=== PATIENT | female | born 1995 | race Hispanic/Latino ===

== ENCOUNTER 2018-02-11 02:32 | Inpatient (IN) | payer SELFPAY ==
[2018-02-11] MEDS ORDERED: ACTIDOSE SORBITOL PO ONE (02:59)
--- NOTE | 2018-02-11 03:45 | Emergency Department Report ---
History of Present Illness - General Chief Complaint: Overdose Stated Complaint: OVERDOSE Time Seen by Provider: 02/11/18 02:59 Source: patient Mode of arrival: Ambulatory Limitations: No Limitations - History of Present Illness Initial Comments: Patient is a 23-year-old female who is presenting status post accidental overdose. Patient started developing a scratchy itchy throat when she swallows and she went into her friend's pill bottle and thought she was getting Tylenol that took 2 of his 10 mg amlodipine pills. Patient states she did this approximately 30-40 minutes ago. Patient states she has some mild dizziness but otherwise is denying any syncope nausea vomiting diarrhea chest pain or shortness of breath. MD Complaint: accidental overdose - Related Data Previous Rx's Medication Instructions Recorded Last Taken Type Amoxicillin 500 mg PO TID #30 tablet 07/02/14 Unknown Rx Loratadine [Claritin] 10 mg PO DAILY #30 tablet 07/02/14 Unknown Rx predniSONE [Deltasone] 20 mg PO QDAY #5 tab 07/02/14 Unknown Rx Acetaminophen/Codeine [Tylenol #3] 1 tab PO Q6H PRN #12 tab 09/23/14 Unknown Rx Ciprofloxacin HCl [Ciprofloxacin 500 mg PO Q12HR #14 tab 09/23/14 Unknown Rx TAB] Promethazine Dm (Nf) [Phenergan Dm 5 ml PO Q6H PRN #120 ml 09/23/14 Unknown Rx 6.25/15 mg 5 ml] Ibuprofen [Motrin 800 MG tab] 800 mg PO Q8HR PRN #12 tablet 12/06/17 Unknown Rx Sulfamethoxazole/Trimethoprim 1 each PO BID #14 tablet 12/06/17 Unknown Rx [Bactrim DS TAB] Acetaminophen/Codeine [Tylenol 1 tab PO Q6H PRN #10 tab 12/10/17 Unknown Rx /Codeine # 3 tab] Chlorhexidine Gluconate [Hibiclens] 236 ml TP BID #1 liquid 12/10/17 Unknown Rx Ketorolac [Toradol] 10 mg PO Q6H PRN #20 tablet 12/10/17 Unknown Rx Sulfamethoxazole/Trimethoprim 2 each PO BID #28 tablet 12/10/17 Unknown Rx [Bactrim DS TAB] cephALEXin [Keflex] 500 mg PO Q8HR #30 cap 12/10/17 Unknown Rx Allergies Allergy/AdvReac Type Severity Reaction Status Date / Time pineapple Allergy Swelling Verified 12/10/17 00:51 ED Review of Systems ROS: Stated complaint: OVERDOSE Other details as noted in HPI Comment: All other systems reviewed and negative ED Past Medical Hx - Past Medical History Previous Medical History?: Yes Hx Asthma: Yes (as child) - Surgical History Past Surgical History?: Yes Additional Surgical History: x1 - Social History Smoking Status: Never Smoker Substance Use Type: None - Medications Home Medications: Home Medications Medication Instructions Recorded Confirmed Last Taken Type Amoxicillin 500 mg PO TID #30 tablet 07/02/14 Unknown Rx Loratadine [Claritin] 10 mg PO DAILY #30 tablet 07/02/14 Unknown Rx predniSONE [Deltasone] 20 mg PO QDAY #5 tab 07/02/14 Unknown Rx Acetaminophen/Codeine [Tylenol #3] 1 tab PO Q6H PRN #12 tab 09/23/14 Unknown Rx Ciprofloxacin HCl [Ciprofloxacin 500 mg PO Q12HR #14 tab 09/23/14 Unknown Rx TAB] Promethazine Dm (Nf) [Phenergan Dm 5 ml PO Q6H PRN #120 ml 09/23/14 Unknown Rx 6.25/15 mg 5 ml] Ibuprofen [Motrin 800 MG tab] 800 mg PO Q8HR PRN #12 tablet 12/06/17 Unknown Rx Sulfamethoxazole/Trimethoprim 1 each PO BID #14 tablet 12/06/17 Unknown Rx [Bactrim DS TAB] Acetaminophen/Codeine [Tylenol 1 tab PO Q6H PRN #10 tab 12/10/17 Unknown Rx /Codeine # 3 tab] Chlorhexidine Gluconate [Hibiclens] 236 ml TP BID #1 liquid 12/10/17 Unknown Rx Ketorolac [Toradol] 10 mg PO Q6H PRN #20 tablet 12/10/17 Unknown Rx Sulfamethoxazole/Trimethoprim 2 each PO BID #28 tablet 12/10/17 Unknown Rx [Bactrim DS TAB] cephALEXin [Keflex] 500 mg PO Q8HR #30 cap 12/10/17 Unknown Rx ED Physical Exam - General Limitations: No Limitations General appearance: alert, in no apparent distress - Head Head exam: Present: atraumatic, normocephalic - Eye Eye exam: Present: normal appearance - ENT ENT exam: Present: mucous membranes moist, other (very poor dentition) - Neck Neck exam: Present: normal inspection - Respiratory Respiratory exam: Present: normal lung sounds bilaterally. Absent: respiratory distress, wheezes, rales, rhonchi - Cardiovascular Cardiovascular Exam: Present: regular rate, normal rhythm, normal heart sounds. Absent: systolic murmur, diastolic murmur, rubs, gallop - GI/Abdominal GI/Abdominal exam: Present: soft, normal bowel sounds - Extremities Exam Extremities exam: Present: normal inspection - Back Exam Back exam: Present: normal inspection - Neurological Exam Neurological exam: Present: alert, oriented X3 - Psychiatric Psychiatric exam: Present: normal affect, normal mood - Skin Skin exam: Present: warm, dry, intact, normal color. Absent: rash ED Course Vital Signs 02/11/18 02/11/18 02/11/18 02:35 02:37 03:16 Temperature 99.0 F 99.0 F Pulse Rate 99 H 107 H 111 H Respiratory 18 18 15 Rate Blood Pressure 121/70 121/70 114/67 O2 Sat by Pulse 100 99 100 Oximetry 02/11/18 02/11/18 03:30 03:46 Temperature Pulse Rate 123 H 123 H Respiratory 19 26 H Rate Blood Pressure 123/67 123/67 O2 Sat by Pulse 100 Oximetry ED Medical Decision Making - Lab Data Result diagrams: 02/11/18 03:23 Labs 02/11/18 02/11/18 02/11/18 03:23 03:23 03:23 Sodium 137 Potassium 3.5 L Chloride 101.7 Carbon Dioxide 22 Anion Gap 17 BUN 17 Creatinine 0.7 Estimated GFR > 60 BUN/Creatinine Ratio 24 Glucose 83 Calcium 9.0 Total Bilirubin 0.20 AST 15 ALT 9 Alkaline Phosphatase 52 Total Protein 7.6 Albumin 4.5 Albumin/Globulin Ratio 1.5 Salicylates < 0.3 L Acetaminophen < 5.0 L - Medical Decision Making Control is consulted and suggested the patient be admitted Sunday. Patient PLACED on a monitor and will be admitted to the hospitalist service at this time. Critical care attestation.: If time is entered above; I have spent that time in minutes in the direct care of this critically ill patient, excluding procedure time. ED Disposition Clinical Impression: Accidental overdose Qualifiers: Encounter type: initial encounter Qualified Code(s): T50.901A - Poisoning by unspecified drugs, medicaments and biological substances, accidental (unintentional), initial encounter Disposition: OP ADMIT IP TO THIS HOSP Is pt being admited?: Yes Does the pt Need Aspirin: No Condition: Stable Referrals: PRIMARY CARE, [Primary Care Provider] - 3-5 Days Time of Disposition: 04:43
[2018-02-11 03:52] LABS: Alanine Aminotransferase 9 units/L (7-56); Albumin 4.5 g/dL (3.9-5); BUN/Creatinine Ratio 24; Blood Urea Nitrogen 17 mg/dL (7-17); Hemolysis Index 12
[2018-02-11] MEDS ORDERED: TYLENOL PO PRN (05:14)
[2018-02-11] MEDS ORDERED: ZOFRAN IV PRN (05:14)
[2018-02-11] MEDS ORDERED: K-DUR PO ONE (05:26)
[2018-02-11 05:28] LABS: Bacteria,Urine 2+ /HPF (Negative); Bilirubin,Urine NEG (Negative); Blood,Urine MOD (Negative); Color,Urine Yellow (Yellow); Mucus,Urine FEW /HPF; WBC,Urine > 182.0 /HPF (0.0-6.0)
[2018-02-11 05:29] LABS: HCG Qualitative,Urine Negative (Negative)
--- NOTE | 2018-02-11 07:01 | History and Physical Report ---
CHIEF COMPLAINT: Dizziness. OTHER COMPLAINT: Includes accidental drug overdose. HISTORY OF PRESENT ILLNESS: The patient is a 23-year-old female who said that she was having scratchy feelings in the throat and reached into her friend's pill bottle and took 2 tablets of her amlodipine thinking that it was Tylenol and took 2 tablets of 10 mg amlodipine pills. The patient said that subsequently she felt a little dizzy, but did not have any nausea, vomiting, abdominal pain, shortness of breath, or chest pain; and presented about 30-40 minutes after the accidental ingestion of the pills. The patient was evaluated and Poison Control was contacted and they said to observe the patient for at least 24 hours and , which was done in the Emergency Room. PAST MEDICAL HISTORY: Pertinent for asthma as a child. PAST SURGICAL HISTORY: Pertinent for . FAMILY HISTORY: Noncontributory. SOCIAL HISTORY: The patient does not smoke, does not drink alcohol, and does not use illicit drugs. MEDICATIONS: The patient's medications as of December 2017 include ibuprofen 800 mg every 8 hours as needed for pain, Bactrim double strength one by mouth twice daily for 7 days, Tylenol No. 3 one by mouth every 6 hours as needed for pain, Hibiclens 236 mL topically twice daily, Toradol 10 mg by mouth every 6 hours as needed for pain, and Keflex 500 mg by mouth every 8 hours. ALLERGIES: REVIEW OF SYSTEMS: CONSTITUTIONAL: There is no fever, no chills, no diaphoresis. HEENT: There is no headache. Scratchiness of the throat noted. CARDIOVASCULAR SYSTEM: There is no chest pain or orthopnea. RESPIRATORY SYSTEM: There is no shortness of breath or cough. GASTROINTESTINAL SYSTEM: There is no nausea, no vomiting, no abdominal pain, diarrhea or constipation. NEUROLOGIC SYSTEM: Dizziness noted. No altered mental status. MUSCULOSKELETAL SYSTEM: There is no joint pain or swelling. DERMATOLOGICAL SYSTEM: There is no skin rash or itching. GENITOURINARY SYSTEM: There is no dysuria, hematuria or flank pain. Rest of system review is normal. PHYSICAL EXAMINATION: GENERAL: At the time of exam, the patient was found to be sleeping quietly on the bed and not in acute distress. VITAL SIGNS: At the initial time of presentation showed temperature of 99 degrees Fahrenheit, pulse 99, respiration 18, blood pressure 121/70, O2 sat 100 on room air. HEENT: Shows pupils to be equal, round, reactive to light and accommodation. Extraocular muscles are intact. NECK: Supple with no DIRK or carotid bruit. CARDIOVASCULAR SYSTEM: Shows normal first and second heart sounds with no gallops or murmurs. RESPIRATORY SYSTEM: Shows good air entry on both sides of the lungs with no abnormal breath sounds. GASTROINTESTINAL SYSTEM: Shows abdomen to be full, soft, nontender with no organomegaly or rigidity. NEUROLOGIC SYSTEM: Shows no focal deficit. MUSCULOSKELETAL SYSTEM: Shows no joint swelling or tenderness. DERMATOLOGIC SYSTEM: Shows no skin rash. GENITOURINARY SYSTEM: Showing no costovertebral angle tenderness. PERTINENT LABORATORY AND IMAGING STUDIES: The patient had no imaging studies done at this time. The patient's lab results showed chemistry with slightly low potassium level of 3.5. Rest of chemistry is being unremarkable. The patient also has toxicology screen done with unremarkable salicylate and acetaminophen level. DIAGNOSES: 1. Accidental drug overdose with amlodipine and also 2. hypokalemia. PLAN OF ACTION: 1. The patient will be placed on observation in the ICU. 2. The patient will be on IV normal saline at 125 mL an hour. 3. The patient will be on IV Zofran 4 mg every 8 hours for nausea and vomiting and will be on heparin 5000 units subcu q. 12 hours for DVT prophylaxis. 4. The patient will have potassium chloride 40 mEq by mouth one time for correction of mild hypokalemia. 5. The patient will have critical care consult with Dr. Reyes for ICU admission. JOB# [id number] OCN/NTS JANETTED
[2018-02-11] MEDS ORDERED: HEPARIN ONE (10:51)
[2018-02-11] MEDS ORDERED: NACL 0.9% 1000 ML 1,000 ML ONE (11:10)
[2018-02-11] MEDS: ROCEPHIN/NS 1 GM/50 ML 1 GM/50 ML BAG IV SCH (11:13)
[2018-02-11] MEDS: NACL 0.9% 1000 ML 1,000 ML IV SCH ×2 (11:13→21:36)
[2018-02-11] MEDS: HEPARIN SUB-Q SCH ×2 (11:13→21:35)
--- NOTE | 2018-02-11 14:11 | Consultation ---
History of Present Illness Consult date: 02/11/18 Reason for consult: other (drug overdose, ICU admission) History of present illness: Called to evaluate case of a 23-year-old female that is being admitted to the ICU secondary to drug overdose. I interrogated the patient's at the ED. She seemed to be sleepy/evasive during the interview. She said that she had an accidental overdose taking to amlodipine pills after she thought they were Tylenol. She claims that this is the first time this happens to her. She then asked for Benadryl, but reportedly she didn't took any. She's sleepy in the ED room (no sedative meds given per nurse), but was able to talk briefly to me. She denies suicidal ideation. She is just under cardiac monitoring, no need for pressors for hypotension. No gastric lavage. Past History Past Medical History: No medical history (denies medical problems) Medications and Allergies Allergies Allergy/AdvReac Type Severity Reaction Status Date / Time pineapple Allergy Swelling Verified 12/10/17 00:51 Home Medications Medication Instructions Recorded Confirmed Last Taken Type No Known Home Medications [No 02/11/18 02/11/18 Unknown History Reported Home Medications] Active Meds: Active Medications Acetaminophen (Tylenol) 650 mg PO Q4H PRN PRN Reason: Headache Heparin Sodium (Porcine) (Heparin) 5,000 unit SUB-Q Q12HR JANINE Last Admin: 02/11/18 11:13 Dose: 5,000 unit Documented by: Sodium Chloride (Nacl 0.9% 1000 Ml) 1,000 mls @ 125 mls/hr IV DIRECT JANINE Last Admin: 02/11/18 11:13 Dose: 125 mls/hr Documented by: Ceftriaxone Sodium (Rocephin/Ns 1 Gm/50 Ml) 1 gm in 50 mls @ 100 mls/hr IV Q24HR JANINE; Protocol Last Admin: 02/11/18 11:13 Dose: 100 mls/hr Documented by: Ondansetron HCl (Zofran) 4 mg IV Q8H PRN PRN Reason: Nausea And Vomiting Review of Systems All systems: negative (reason allergy-like discomfort) Physical Examination Vital signs: Vital Signs Temp Pulse Resp BP Pulse Ox 99.0 F 99 H 18 121/70 100 02/11/18 02:35 02/11/18 02:35 02/11/18 02:35 02/11/18 02:35 02/11/18 02:35 General appearance: asleep Eyes: non-icteric ENT: oropharynx moist, other (poor dentition) Neck: supple, no JVD Ascultation: Bilateral: clear Cardiovascular: regular rate and rhythm Gastrointestinal: normoactive bowel sounds, non-distended Integumentary: normal Extremities: no cyanosis, no edema, pink and warm Musculoskeletal: no deformities normal mental status (sleepy but coherent during the interview), non-focal exam, CN II-XII normal other (appears to avoid my questions) Results - Laboratory Findings CBC and BMP: 02/11/18 03:23 Abnormal lab findings: Abnormal Labs 02/11/18 02/11/18 02/11/18 03:23 03:23 03:23 Potassium 3.5 L Urine WBC (Auto) Salicylates < 0.3 L Acetaminophen < 5.0 L 02/11/18 05:05 Potassium Urine WBC (Auto) > 182.0 H Salicylates Acetaminophen - Diagnostic Findings Chest x-ray: report reviewed, image reviewed Assessment and Plan Alleged drug overdose Recommendations I agree with IV fluids Continue blood pressure monitoring. I will avoid any sedatives for the moment Urinary drug panel She remains hemodynamically stable, without any need for aspiration or pressors monitoring, she could be also admitted to the IMCU. Continue telemetry and vital signs monitoring DVT prophylaxis I discussed my findings with the ED staff. No family members available outpatient bedside. It might be terrazas to keep the patient in an area, where rather a patient of her the next 24 hours and keep an eye on any [id number] intake. Thanks
--- NOTE | 2018-02-11 14:46 | Event Note ---
Date: 02/11/18 23-year-old female admitted for overdose. She was alert and oriented. Poison control was consulted and recommended charcoal and observe for 48 hours. UA showed UTI and on rocephin. Patient can be discharged after observed for 48hrs.
[2018-02-11 23:41] LABS: Amphetamine Screen,Urine PRESUMPTIVE NEGATIVE; Benzodiazepines Screen,Urine PRESUMPTIVE NEGATIVE; Cannabinoid Screen,Urine PRESUMPTIVE NEGATIVE; Methadone Screen,Urine PRESUMPTIVE NEGATIVE; Opiate Screen,Urine PRESUMPTIVE NEGATIVE
[2018-02-12 00:26] LABS: Cocaine Screen,Urine PRESUMPTIVE POSITIVE
[2018-02-12 06:20] LABS: Alanine Aminotransferase 8 units/L (7-56); Albumin 3.8 g/dL (3.9-5); BUN/Creatinine Ratio 18; Blood Urea Nitrogen 9 mg/dL (7-17); Calcium 8.3 mg/dL (8.4-10.2); Hemolysis Index 1
[2018-02-12] MEDS: NACL 0.9% 1000 ML 1,000 ML IV SCH ×2 (06:23→18:10)
[2018-02-12] MEDS ORDERED: LOVENOX SUB-Q SCH (10:00)
[2018-02-12] MEDS: LOVENOX SUB-Q SCH (10:25)
[2018-02-12] MEDS: ROCEPHIN/NS 1 GM/50 ML 1 GM/50 ML BAG IV SCH (10:25)
--- NOTE | 2018-02-12 11:18 | Progress Note ---
Assessment and Plan Assessment and plan: Unintentional drug overdose. Patient denies any suicidal ideations. However, we will have psych consult for further evaluation. Substance abuse, cocaine. The patient will be counseled on cessation. P sychiatric consultation pending. Sepsis with UTI. Patient needs criteria given her tachycardia, tachypnea and diagnosis of UTI. Continue IV antibiotics and monitor closely. Check urine and blood cultures. History Interval history: 23-year-old female that is being admitted secondary to drug overdose. She said that she had an accidental overdose taking to amlodipine pills after she thought they were Tylenol. She claims that this is the first time this happened to her. She denies suicidal ideation. Poison control was consulted and recommended charcoal and observe for 48 hours. UA showed UTI and on rocephin. Hospitalist Physical - Constitutional Vitals: Temp Pulse Resp BP Pulse Ox 97.8 F 75 18 105/60 99 02/12/18 06:04 02/12/18 06:04 02/12/18 06:04 02/12/18 06:04 02/12/18 06:04 General appearance: Present: no acute distress, well-nourished - EENT Eyes: Present: PERRL, EOM intact ENT: hearing intact, clear oral mucosa, dentition normal - Neck Neck: Present: supple, normal ROM - Respiratory Respiratory effort: normal Respiratory: bilateral: CTA - Cardiovascular Rhythm: regular Heart Sounds: Present: S1 & S2. Absent: gallop, rub - Extremities Extremities: no ischemia, No edema, Full ROM - Abdominal General gastrointestinal: soft, non-tender, non-distended, normal bowel sounds - Integumentary Integumentary: Present: clear, warm, dry - Neurologic Neurologic: CNII-XII intact, moves all extremities Results - Labs CBC & Chem 7: 02/12/18 05:26 Labs: Laboratory Last Values Sodium 139 mmol/L (137-145) 02/12/18 05:26 Potassium 3.7 mmol/L (3.6-5.0) 02/12/18 05:26 Chloride 108.1 mmol/L (98-107) H 02/12/18 05:26 Carbon Dioxide 20 mmol/L (22-30) L 02/12/18 05:26 Anion Gap 15 mmol/L 02/12/18 05:26 BUN 9 mg/dL (7-17) 02/12/18 05:26 Creatinine 0.5 mg/dL (0.7-1.2) L 02/12/18 05:26 Estimated GFR > 60 ml/min 02/12/18 05:26 BUN/Creatinine Ratio 18 % 02/12/18 05:26 Glucose 98 mg/dL (65-100) 02/12/18 05:26 POC Glucose 92 (70-105) 02/11/18 10:11 Calcium 8.3 mg/dL (8.4-10.2) L 02/12/18 05:26 Total Bilirubin < 0.20 mg/dL (0.1-1.2) 02/12/18 05:26 AST 11 units/L (5-40) 02/12/18 05:26 ALT 8 units/L (7-56) 02/12/18 05:26 Alkaline Phosphatase 44 units/L (35-129) 02/12/18 05:26 Total Protein 6.7 g/dL (6.3-8.2) 02/12/18 05:26 Albumin 3.8 g/dL (3.9-5) L 02/12/18 05:26 Albumin/Globulin Ratio 1.3 % 02/12/18 05:26 Urine Color Yellow (Yellow) 02/11/18 05:05 Urine Turbidity Turbid (Clear) 02/11/18 05:05 Urine pH 5.0 (5.0-7.0) 02/11/18 05:05 Ur Specific [place] 1.011 (1.003-1.030) 02/11/18 05:05 Urine Protein 30 mg/dl mg/dL (Negative) 02/11/18 05:05 Urine Glucose (UA) Neg mg/dL (Negative) 02/11/18 05:05 Urine Ketones Neg mg/dL (Negative) 02/11/18 05:05 Urine Blood Mod (Negative) 02/11/18 05:05 Urine Nitrite Neg (Negative) 02/11/18 05:05 Urine Bilirubin Neg (Negative) 02/11/18 05:05 Urine Urobilinogen 2.0 mg/dL (<2.0) 02/11/18 05:05 Ur Leukocyte Esterase Lg (Negative) 02/11/18 05:05 Urine WBC (Auto) > 182.0 /HPF (0.0-6.0) H 02/11/18 05:05 Urine RBC (Auto) 38.0 /HPF (0.0-6.0) 02/11/18 05:05 U Epithel Cells (Auto) 7.0 /HPF (0-13.0) 02/11/18 05:05 Urine Bacteria (Auto) 2+ /HPF (Negative) 02/11/18 05:05 Urine WBC Clumps 2+ /HPF 02/11/18 05:05 Urine Mucus Few /HPF 02/11/18 05:05 Urine Yeast (Budding) 3+ /HPF 02/11/18 05:05 Urine HCG, Qual Negative (Negative) 02/11/18 05:05 Salicylates < 0.3 mg/dL (2.8-20.0) L 02/11/18 03:23 Urine Opiates Screen Presumptive negative 02/11/18 23:18 Urine Methadone Screen Presumptive negative 02/11/18 23:18 Acetaminophen < 5.0 ug/mL (10.0-30.0) L 02/11/18 03:23 Ur Barbiturates Screen Presumptive negative 02/11/18 23:18 Ur Phencyclidine Scrn Presumptive negative 02/11/18 23:18 Ur Amphetamines Screen Presumptive negative 02/11/18 23:18 U Benzodiazepines Scrn Presumptive negative 02/11/18 23:18 Urine Cocaine Screen Presumptive positive 02/11/18 23:18 U Marijuana (THC) Screen Presumptive negative 02/11/18 23:18 Drugs of Abuse Note Disclamer 02/11/18 23:18
--- NOTE | 2018-02-12 11:50 | Progress Note ---
Assessment and Plan Unintentional drug overdose. Patient denies any suicidal ideations. Pending psych consult for further evaluation. Substance abuse, cocaine. See tox panel Psychiatric consultation pending. Sepsis with UTI. On antibiotics Recommendations IV fluids for hospital medicine Continue blood pressure monitoring. I will avoid any sedatives for the moment Psych evaluation DVT prophylaxis Discussed with patient in detail. All questions answered. I will sign off at this point. Feel free to reconsult if needed Subjective Date of service: 02/12/18 Principal diagnosis: accidental drug overdose, drug abuse Interval history: Reports no respiratory complaints today. She denies any chest pain. No vomiting. Under observation and telemetry monitoring, pending psych evaluation Objective Vital Signs - 12hr 02/12/18 06:04 Temperature 97.8 F Pulse Rate 75 Respiratory 18 Rate Blood Pressure 105/60 O2 Sat by Pulse 99 Oximetry Constitutional: asleep Eyes: non-icteric ENT: oropharynx moist, other (poor dentition) Neck: supple, no JVD Ascultation: Bilateral: clear Cardiovascular: regular rate and rhythm Gastrointestinal: normoactive bowel sounds, non-distended Integumentary: normal Extremities: no cyanosis, no edema, pink and warm Neurologic: normal mental status (found asleep, but easily are supple and oriented), non-focal exam, CN II-XII normal Psychiatric: other (appears to avoid my questions) CBC and BMP: 02/12/18 05:26 Abnormal lab findings: Abnormal Labs 02/11/18 02/11/18 02/11/18 03:23 03:23 03:23 Potassium 3.5 L Chloride Carbon Dioxide Creatinine Calcium Albumin Urine WBC (Auto) Salicylates < 0.3 L Acetaminophen < 5.0 L 02/11/18 02/12/18 05:05 05:26 Potassium Chloride 108.1 H Carbon Dioxide 20 L Creatinine 0.5 L Calcium 8.3 L Albumin 3.8 L Urine WBC (Auto) > 182.0 H Salicylates Acetaminophen Chest x-ray: report reviewed, image reviewed
[2018-02-13] MEDS: NACL 0.9% 1000 ML 1,000 ML IV SCH (01:33)
[2018-02-13 06:13] VITALS: BP 101/60
--- NOTE | 2018-02-13 07:38 | Discharge Summary ---
Providers - Providers Date of Admission: 02/11/18 05:10 Date of discharge: 02/13/18 Attending physician: VICTORIA SEE 02/11/18 06:00 Consult to Physician [CONS] Routine Comment: Dr. Colon called back @ [id number] Consulting Provider: RASHI COLON Physician Instructions: Reason For Exam: ICU ADMISSION FOR ACCIDENTAL DRUG OVERDOSE 02/12/18 11:19 Consult to Mental Health [CONS] Routine Reason For Exam: drug overdose Place consult to:: [facility] Notified:: DOMIQUINE Phone number called:: [phone] Was contact made?: Yes If yes, spoke with:: DOMIQUINE Time called:: 12:30 Primary care physician: PERSONNEL GENERALIST MANAGER Hospitalization Reason for admission: unintentional drug od Condition: Stable Hospital course: 23-year-old female that is being admitted secondary to drug overdose. She said that she had an accidental overdose taking two amlodipine pills after she thought they were Tylenol. She claims that this is the first time this happened to her. She denies suicidal ideation. Poison control was consulted and recommended charcoal and observe for 48 hours. UA showed UTI. The patient was also given diagnosis of sepsis given tachycardia, tachypnea and diagnosis of UTI. The patient was treated with IV Rocephin. Blood cultures were found to be negative. Urine drug screen was positive for cocaine. Patient was counseled on cessation. Psychiatry saw the patient in consultation and felt that patient had no suicidal or homicidal ideations as well. Patient is discharged home. The gated discharge time 32 minutes. Disposition: - TO HOME OR SELFCARE Time spent for discharge: 32 - Discharge Diagnoses (1) Cocaine abuse Status: Acute (2) Sepsis Status: Acute (3) UTI (urinary tract infection) Status: Acute (4) Accidental overdose Status: Acute Qualifiers: Encounter type: initial encounter Qualified Code(s): T50.901A - Poisoning by unspecified drugs, medicaments and biological substances, accidental (unintentional), initial encounter Core Measure Documentation - Palliative Care Palliative Care/ Comfort Measures: Not Applicable - Core Measures Any of the following diagnoses?: none Exam - Constitutional Vitals: Temp Pulse Resp BP Pulse Ox 97.9 F 85 18 101/60 100 02/13/18 05:11 02/13/18 05:11 02/13/18 05:11 02/13/18 05:11 02/13/18 05:11 General appearance: Present: no acute distress, well-nourished - EENT Eyes: Present: PERRL ENT: hearing intact, clear oral mucosa - Neck Neck: Present: supple, normal ROM - Respiratory Respiratory effort: normal Respiratory: bilateral: CTA - Cardiovascular Heart Sounds: Present: S1 & S2. Absent: rub, click - Extremities Extremities: pulses symmetrical, No edema Peripheral Pulses: within normal limits - Abdominal General gastrointestinal: Present: soft, non-tender, non-distended, normal bowel sounds Female genitourinary: Present: normal - Integumentary Integumentary: Present: clear, warm, dry - Musculoskeletal Musculoskeletal: gait normal, strength equal bilaterally - Psychiatric Psychiatric: appropriate mood/affect, intact judgment & insight - Neurologic Neurologic: CNII-XII intact, moves all extremities Plan Activity: no restrictions Weight Bearing Status: Full Weight Bearing Diet: regular Follow up with: PRIMARY CARE, [Primary Care Provider] - 3-5 Days Prescriptions: cefUROXime [Ceftin] 500 mg PO Q12H #10 tablet
[2018-02-13] MEDS: LOVENOX SUB-Q SCH (10:00)
[2018-02-13] MEDS: ROCEPHIN/NS 1 GM/50 ML 1 GM/50 ML BAG IV SCH (10:00)
== END 2018-02-13 11:00 | disposition home or self-care (01) | DRG 917 ==
LOC: ED 02:32 → CC1 05:10 → 3A 17:14
PROVIDERS: ADMIT Internal Medicine; ATTEND Hospitalist
DX: T46.1X1A Poisoning by calcium-channel blockers, accidental (unintentional), initial encounter (principal); A41.9 Sepsis, unspecified organism; N39.0 Urinary tract infection, site not specified; F14.10 Cocaine abuse, uncomplicated; J45.909 Unspecified asthma, uncomplicated; E87.6 Hypokalemia; Y92.89 Other specified places as the place of occurrence of the external cause; Z71.51 Drug abuse counseling and surveillance of drug abuser; Z79.899 Other long term (current) drug therapy
CPT/HCPCS: 36415; 80053; 80307; 80320; 81001; 81025; 82962; 87040; 87086; 93005; 93010; 96365; G0378; G0480; J0696; J1644; J1650; J7030

== ENCOUNTER 2021-06-29 13:16 | Emergency (ER) | payer SELFPAY ==
[2021-06-29 14:20] VITALS: BP 104/62
== END 2021-06-29 17:47 | disposition left against medical advice (07) ==
LOC: ED 13:16
DX: J02.9 Acute pharyngitis, unspecified (principal); R05.9 Cough, unspecified; R42 Dizziness and giddiness; Z53.21 Procedure and treatment not carried out due to patient leaving prior to being seen by health care provider

== ENCOUNTER 2021-08-13 10:00 | Emergency (ER) | payer SELFPAY ==
[2021-08-13] MEDS ORDERED: SODIUM CHLORIDE 0.9% 500 ML 500 ML IV ONE ×2 (10:14→12:57)
[2021-08-13] MEDS ORDERED: ACETAMINOPHEN 500 MG TAB PO ONE (10:58)
[2021-08-13 11:09] LABS: Bilirubin,Urine NEG (Negative); Blood,Urine NEG (Negative); Color,Urine Yellow (Yellow); Urobilinogen,Urine < 2.0 mg/dL (<2.0)
--- NOTE | 2021-08-13 11:12 | XRay Report ---
CHEST 2 VIEWS INDICATION / CLINICAL INFORMATION: possible Sepsis. COMPARISON: None available. FINDINGS: SUPPORT DEVICES: None. HEART / MEDIASTINUM: No significant abnormality. LUNGS / PLEURA: No significant pulmonary abnormality. No significant pleural effusion. No pneumothora x. ADDITIONAL FINDINGS: No significant additional findings. IMPRESSION: 1. No acute abnormality of the chest. Signer Name: Ken Quigley MD Signed: 08/13/2021 11:08 AM Workstation Name: [id number]
[2021-08-13 11:15] LABS: Bacteria,Urine 2+ /HPF (Negative); Mucus,Urine 2+ /HPF
[2021-08-13 11:50] LABS: Alanine Aminotransferase 11 units/L (7-56); Blood Urea Nitrogen 9 mg/dL (7-17); Calcium 8.3 mg/dL (8.4-10.2); Hemolysis Index 1
[2021-08-13 11:57] LABS: BUN/Creatinine Ratio 13
[2021-08-13 12:00] LABS: Basophils % (Auto) 0.4 % (0.0-1.8); Eosinophils % (Auto) 0.2 % (0.0-4.3); Hemoglobin 10.1 gm/dl (10.1-14.3); Lymphocytes # (Auto) 0.9 K/mm3 (1.2-5.4); Lymphocytes % (Auto) 15.3 % (13.4-35.0); Mean Corpuscular HGB Conc 31 % (30-34); Monocytes # (Auto) 0.7 K/mm3 (0.0-0.8); Monocytes % (Auto) 11.3 % (0.0-7.3); Platelet Count 290 K/mm3 (140-440); Red Blood Count 5.21 M/mm3 (3.65-5.03)
[2021-08-13 12:06] LABS: Mean Corpuscular Volume 63 fl (79-97); Red Cell Distribution Width 21.9 % (13.2-15.2)
[2021-08-13] MEDS ORDERED: cefTRIAXone/NS 1 GM/50 ML 1 GM/50 ML BAG IV ONE (12:57)
[2021-08-13 12:58] LABS: INR 1.13 (0.87-1.13)
--- NOTE | 2021-08-13 13:09 | Emergency Department Report ---
ED General Adult HPI - General Chief complaint: Weakness Stated complaint: SHORT OF BREATH, CHEST PAIN Time Seen by Provider: 08/13/21 10:47 Source: patient Mode of arrival: Ambulatory Limitations: No Limitations - History of Present Illness Initial comments: Is a 26-year-old female who presents for chest pain shortness of breath weakness for 3 days. Patient denies history patient is not COVID vaccinated. Takes fever malaise chills no T-max noted at home temp of 103 in triage today. Noted tachycardia in triage today however patient appears nontoxic and in no respiratory distress at this time. States nausea no vomiting. Cough is nonproductive. Patient denies other history denies substance denies smoking. Symptoms are exacerbated by activity and movement. Symptoms are relieved by nothing tried. Last p.o. intake was yesterday. Severity scale (0 -10): 10 - Related Data Previous Rx's Medication Instructions Recorded Last Taken Type cefUROXime [Ceftin] 500 mg PO Q12H #10 tablet 02/13/18 Unknown Rx Ibuprofen [Motrin 800 MG tab] 800 mg PO Q8HR PRN #30 tablet 08/13/21 Unknown Rx cephALEXin [Keflex] 500 mg PO BID 7 Days #14 cap 08/13/21 Unknown Rx Allergies Allergy/AdvReac Type Severity Reaction Status Date / Time pineapple Allergy Swelling Verified 12/10/17 00:51 ED Review of Systems ROS: Stated complaint: SHORT OF BREATH, CHEST PAIN Other details as noted in HPI Constitutional: chills, fever, malaise Eyes: denies: eye pain, eye discharge, vision change ENT: denies: ear pain, throat pain, congestion Respiratory: denies: cough, shortness of breath, wheezing Cardiovascular: denies: chest pain, palpitations Endocrine: no symptoms reported Gastrointestinal: denies: abdominal pain, nausea, vomiting, diarrhea Genitourinary: denies: urgency, dysuria, frequency, hematuria, discharge Musculoskeletal: denies: back pain, joint swelling, arthralgia Skin: denies: rash, lesions Neurological: headache, vertigo. denies: weakness, paresthesias Psychiatric: denies: anxiety, depression Hematological/Lymphatic: denies: easy bleeding, easy bruising ED Past Medical Hx - Past Medical History Hx Asthma: Yes (as child) - Surgical History Additional Surgical History: x1 - Social History Smoking Status: Never Smoker - Medications Home Medications: Home Medications Medication Instructions Recorded Confirmed Last Taken Type cefUROXime [Ceftin] 500 mg PO Q12H #10 tablet 02/13/18 Unknown Rx Ibuprofen [Motrin 800 MG tab] 800 mg PO Q8HR PRN #30 tablet 08/13/21 Unknown Rx cephALEXin [Keflex] 500 mg PO BID 7 Days #14 cap 08/13/21 Unknown Rx ED Physical Exam - General Limitations: No Limitations General appearance: alert, in no apparent distress - Head Head exam: Present: normocephalic, normal inspection - Eye Eye exam: Present: PERRL, EOMI. Absent: conjunctival injection, nystagmus Pupils: Present: normal accommodation - ENT ENT exam: Present: mucous membranes moist - Neck Neck exam: Present: normal inspection, full ROM. Absent: tenderness - Respiratory Respiratory exam: Present: normal lung sounds bilaterally. Absent: respiratory distress, wheezes, stridor, chest wall tenderness - Cardiovascular Cardiovascular Exam: Present: normal rhythm, tachycardia, normal heart sounds. Absent: systolic murmur, diastolic murmur, rubs, gallop - GI/Abdominal GI/Abdominal exam: Present: soft, normal bowel sounds. Absent: distended, tenderness, guarding, rebound, rigid, bruit, hernia - Rectal Rectal exam: Present: deferred - Extremities Exam Extremities exam: Present: normal inspection, full ROM, normal capillary refill - Back Exam Back exam: Present: normal inspection, full ROM. Absent: CVA tenderness (R), CVA tenderness (L) - Neurological Exam Neurological exam: Present: alert, oriented X3, CN II-XII intact, motor sensory deficit, reflexes normal - Psychiatric Psychiatric exam: Present: normal affect, normal mood - Skin Skin exam: Present: warm, dry, intact, normal color. Absent: rash ED Course Vital Signs 08/13/21 10:09 Temperature 103 F H Pulse Rate 130 H Respiratory 16 Rate Blood Pressure 114/72 [Left] O2 Sat by Pulse 100 Oximetry ED Medical Decision Making - Lab Data Result diagrams: 08/13/21 10:33 08/13/21 10:33 Labs 08/13/21 08/13/21 08/13/21 10:33 10:33 10:33 WBC 6.0 RBC 5.21 H Hgb 10.1 Hct 33.0 MCV 63 L MCH 20 L MCHC 31 RDW 21.9 H Plt Count 290 Lymph % (Auto) 15.3 Rush % (Auto) 11.3 H Eos % (Auto) 0.2 Baso % (Auto) 0.4 Lymph # (Auto) 0.9 L Rush # (Auto) 0.7 Eos # (Auto) 0.0 Baso # (Auto) 0.0 Seg Neutrophils % 72.8 H Seg Neutrophils # 4.4 PT 15.8 H INR 1.13 VBG pH Sodium 134 L Potassium 4.0 Chloride 101.9 Carbon Dioxide 21 L Anion Gap 15 BUN 9 Creatinine 0.7 Estimated GFR > 60 BUN/Creatinine Ratio 13 Glucose 95 Lactic Acid Calcium 8.3 L Total Bilirubin 0.20 AST 20 ALT 11 Alkaline Phosphatase 49 Total Protein 8.2 Albumin 4.0 Albumin/Globulin Ratio 1.0 Urine Color Urine Turbidity Urine pH Ur Specific [place] Urine Protein Urine Glucose (UA) Urine Ketones Urine Blood Urine Nitrite Urine Bilirubin Urine Urobilinogen Ur Leukocyte Esterase Urine WBC (Auto) Urine RBC (Auto) U Epithel Cells (Auto) Urine Bacteria (Auto) Urine WBC Clumps Urine Mucus 08/13/21 08/13/21 08/13/21 10:33 10:33 10:41 WBC RBC Hgb Hct MCV MCH MCHC RDW Plt Count Lymph % (Auto) Rush % (Auto) Eos % (Auto) Baso % (Auto) Lymph # (Auto) Rush # (Auto) Eos # (Auto) Baso # (Auto) Seg Neutrophils % Seg Neutrophils # PT INR VBG pH 7.396 Sodium Potassium Chloride Carbon Dioxide Anion Gap BUN Creatinine Estimated GFR BUN/Creatinine Ratio Glucose Lactic Acid 1.50 Calcium Total Bilirubin AST ALT Alkaline Phosphatase Total Protein Albumin Albumin/Globulin Ratio Urine Color Yellow Urine Turbidity Cloudy Urine pH 5.0 Ur Specific [place] 1.024 Urine Protein 30 mg/dl Urine Glucose (UA) Neg Urine Ketones Neg Urine Blood Neg Urine Nitrite Neg Urine Bilirubin Neg Urine Urobilinogen < 2.0 Ur Leukocyte Esterase Mod Urine WBC (Auto) 59.0 H Urine RBC (Auto) 16.0 U Epithel Cells (Auto) 16.0 H Urine Bacteria (Auto) 2+ Urine WBC Clumps Few Urine Mucus 2+ - Radiology Data Radiology results: report reviewed, image reviewed CHEST 2 VIEWS INDICATION / CLINICAL INFORMATION: possible Sepsis. COMPARISON: None available. FINDINGS: SUPPORT DEVICES: None. HEART / MEDIASTINUM: No significant abnormality. LUNGS / PLEURA: No significant pulmonary abnormality. No significant pleural effusion. No pneumothorax. ADDITIONAL FINDINGS: No significant additional findings. IMPRESSION: 1. No acute abnormality of the chest. Signer Name: Ken Quigley MD Signed: 08/13/2021 11:08 AM Workstation Name: [id number] Transcribed By: ABDIAS Dictated By: Ken Quigley MD Electronically Authenticated By: Ken Quigley MD Signed Date/Time: 08/13/21 1108 DD/ 1107 TD/TT: - Medical Decision Making Chest x-ray is normal no infiltrates no opacities, labs noted normal as above, UA noted for leukocytes bacteria and mucus. Some epithelial cells. Physical exam patient is alert oriented x3 multiple dental caries, heart sounds are normal tachycardia is resolved with IV fluids given in ED patient is currently t olerating p.o. intake without nausea vomiting. Patient denies dysuria frequency or urgency no vaginal discharge. There is no productive cough. This is not sepsis with mild dehydration. Plan treat for UTI, rehydrate, DC to self. Patient appears well-nourished well-hydrated and nontoxic at this time. Patient will be DC'd home after completion of IV fluids. He verbalized agreement and understanding of discharge plan. Repeat vital sign: HR: 93, BP: 101/63, resp:16, O2 Sat: 98% room air. Critical care attestation.: If time is entered above; I have spent that time in minutes in the direct care of this critically ill patient, excluding procedure time. ED Disposition Clinical Impression: Dehydration Fever Qualifiers: Fever type: unspecified Qualified Code(s): R50.9 - Fever, unspecified Disposition: HOME / SELF CARE / HOMELESS Is pt being admited?: No Does the pt Need Aspirin: No Condition: Stable Instructions: Fever, Adult, [id number], Rehydration, Adult Additional Instructions: Take medications as prescribed, hydrate as directed. Follow-up with your doctor in 2 to 3 days. Return to emergency department should symptoms worsen. Prescriptions: cephALEXin [Keflex] 500 mg PO BID 7 Days #14 cap Ibuprofen [Motrin 800 MG tab] 800 mg PO Q8HR PRN #30 tablet PRN Reason: Pain fever Referrals: [facility] [Provider Group] - 3-5 Days Forms: Work/School Release Form(ED) Time of Disposition: 13:24
[2021-08-13 14:52] VITALS: BP 111/78
--- NOTE | 2021-08-14 19:44 | Electrocardiograph Report ---
[facility] Test Date: 2021-08-13 Test Time: 10:19:31 Pat Name: ANTHONY JUAREZ Department: Room: Gender: F Sales Specialist: JOHN : 1995 Requested By: ED DOC Order Number: [id number] Reading MD: Roni Staples Measurements Intervals [place] Rate: 112 P: 20 W[place]: 114 QRS: 54 QRSD: 88 T: 63 QT: 299 QTc: 408 Interpretive Statements Sinus tachycardia No previous ECG available for comparison Electronically Signed On 08-14-2021 19:44:19 EDT by Roni Staples
== END 2021-08-13 14:12 | disposition home or self-care (01) ==
LOC: ED 10:00
DX: E86.0 Dehydration (principal); R50.9 Fever, unspecified; J45.909 Unspecified asthma, uncomplicated; Z91.02 Food additives allergy status; Z79.899 Other long term (current) drug therapy
CPT/HCPCS: 36415; 71046; 80053; 81001; 82140; 82805; 85025; 85610; 87040; 87086; 93005; 96365; 99284; J0696; J7040